=== PATIENT | female | born 1980 | race Caucasian/White ===

== ENCOUNTER 2018-07-06 11:41 | Emergency (ER) | payer SELFPAY ==
[~2018-07-06] VITALS: Ht 157.5 cm; Wt 68.2 kg
[2018-07-06 11:46] VITALS: Ht 157.5 cm; Wt 68.2 kg
[2018-07-06] MEDS ORDERED: BUSPAR 15 MG TA15 MG PO (11:48)
[2018-07-06] MEDS ORDERED: LISINOPRIL10 MG PO (11:48)
[2018-07-06] MEDS ORDERED: KEPPRA250 MG PO (11:48)
[2018-07-06] MEDS ORDERED: VIBRAMYCIN50 MG (11:49)
[2018-07-06 12:31] LABS: BASOPHILS 0.3 % (0-2); EOSINOPHILS 2.4 % (0-7); HEMATOCRIT 39.4 % (36.0-48.0); IMMATURE GRANULOCYTES 0.1 % (0-5); LYMPHOCYTES 20.7 % (15-50); MCH 30.4 pg (26.0-34.0); MCV 92.3 fL (80.0-100.0); MEAN PLATELET VOLUME 9.6 fL (7.4-10.4); MONOCYTES 8.4 % (2-11); NEUTROPHILS 68.1 % (40-80); PLATELET COUNT 265 10x3/uL (130-400); RBC 4.27 10x6/uL (4.00-5.40); RDW 13.9 % (11.5-14.5); WBC 7.2 10x3/uL (4.8-10.8)
[2018-07-06 12:45] LABS: ALBUMIN 3.3 g/dL (3.4-5.0); ALKALINE PHOSPHATASE 63 U/L (46-116); ALT (SGPT) 17 U/L (10-68); BILIRUBIN - TOTAL 0.23 mg/dL (0.2-1.3); CALC OSMOLALITY 279 mosm/kg (275-300); CALCIUM 8.8 mg/dL (8.5-10.1); CARBON DIOXIDE 30.9 mmol/L (21.0-32.0); CHLORIDE - SERUM 105 mmol/L (98-107); CREATININE - SERUM 0.7 mg/dL (0.6-1.3); GLUCOSE 104 mg/dL (74-106); POTASSIUM - SERUM 3.9 mmol/L (3.5-5.1); SODIUM 141 mmol/L (136-145); UREA NITROGEN 11 mg/dL (7-18); eGFR NON AFRICAN AMERICAN > 90 mL/min (90-120)
[2018-07-06 12:58] LABS: CKMB 1.1 U/L (0.0-3.6); CREATINE KINASE 73 UL (21-215); THYROID STIMULATING HORMONE 1.24 uIU/mL (0.36-3.74); TROPONIN-I < 0.017 ng/mL (0.000-0.060)
[2018-07-06 13:04] LABS: UDS - AMPHET NEGATIVE QUAL (NEGATIVE); UDS - BARB NEGATIVE QUAL (NEGATIVE); UDS - BENZO NEGATIVE QUAL (NEGATIVE); UDS - COCAINE NEGATIVE QUAL (NEGATIVE); UDS - OPIATE NEGATIVE QUAL (NEGATIVE); UDS - PCP NEGATIVE QUAL (NEGATIVE); UDS - THC NEGATIVE QUAL (NEGATIVE)
[2018-07-06 13:12] LABS: APPEARANCE CLEAR (CLEAR); BILIRUBIN NEGATIVE (NEGATIVE); COLOR YELLOW (YELLOW); GLUCOSE NEGATIVE (NEGATIVE); KETONE NEGATIVE (NEGATIVE); NITRITE NEGATIVE (NEGATIVE); PROTEIN NEGATIVE (NEGATIVE); UROBILINOGEN NORMAL (NORMAL)
[2018-07-06 14:45] VITALS: BP 119/77
== END 2018-07-06 14:45 | disposition home or self-care (01) ==
LOC: D.ER 11:41
PROVIDERS: Family Medicine
DX: F41.9 Anxiety disorder, unspecified (principal); R53.83 Other fatigue; I10 Essential (primary) hypertension; R00.0 Tachycardia, unspecified; F17.200 Nicotine dependence, unspecified, uncomplicated

== ENCOUNTER 2018-07-09 04:19 | Emergency (ER) | payer SELFPAY ==
[~2018-07-09] VITALS: Ht 157.5 cm; Wt 72.7 kg
[~2018-07-09 04:19] MED LIST: BUSPAR 15 MG TA15 MG PO; KEPPRA250 MG PO; LISINOPRIL10 MG PO; VIBRAMYCIN50 MG
[2018-07-09 04:30] VITALS: Ht 157.5 cm; Wt 72.7 kg
[2018-07-09] MEDS ORDERED: IBUPROFEN800 MG PO (04:46)
[2018-07-09] MEDS ORDERED: CYCLOBENZAPRINE10 MG PO (04:46)
[2018-07-09] MEDS ORDERED: ACETAMINOPHEN500 M1 PO (04:46)
[2018-07-09] MEDS ORDERED: PENICILLIN V P500 MG PO (04:46)
[2018-07-09 05:33] VITALS: BP 122/77
== END 2018-07-09 05:34 | disposition home or self-care (01) ==
LOC: D.ER 04:19
DX: K02.9 Dental caries, unspecified (principal); K08.89 Other specified disorders of teeth and supporting structures; I10 Essential (primary) hypertension; K21.9 Gastro-esophageal reflux disease without esophagitis; K58.9 Irritable bowel syndrome, unspecified; F17.200 Nicotine dependence, unspecified, uncomplicated